=== PATIENT | male | born 1965 | race Caucasian/White ===

== ENCOUNTER 2021-08-28 08:04 | Day surgery (SDC) | payer OTHER, SELFPAY ==
[~2021-08-28] VITALS: Ht 188 cm; Wt 97.5 kg
[2021-08-28] MEDS ORDERED: diphenhydrAMINE 50 MG/ML VIAL ONE (09:00)
[2021-08-28] MEDS ORDERED: fentaNYL citrate 0.05 MG/ML VIAL ONE (09:00)
[2021-08-28] MEDS ORDERED: LIDOCAINE 2% 100 MG/5 ML UJET TP ONE (09:01)
[2021-08-28] MEDS ORDERED: MIDAZOLAM 5 MG/5 ML VIAL ONE (09:01)
[2021-08-28] MEDS ORDERED: MIDAZOLAM 2 MG/2 ML VIAL IVP ONE (13:05)
[2021-08-28] MEDS ORDERED: fentaNYL citrate 0.05 MG/ML VIAL IVP ONE (13:05)
== END 2021-08-28 09:55 | disposition home or self-care (01) ==
LOC: MMU 08:04 → MDS 08:04
PROVIDERS: ATTEND Internal Medicine Gastroenterology
DX: Z12.11 Encounter for screening for malignant neoplasm of colon (principal); K57.30 Diverticulosis of large intestine without perforation or abscess without bleeding; K64.8 Other hemorrhoids; I10 Essential (primary) hypertension; F32.9 Major depressive disorder, single episode, unspecified; Z79.899 Other long term (current) drug therapy; Z20.822 Contact with and (suspected) exposure to COVID-19
CPT/HCPCS: 45378; 87426; J2250; J3010; J1200